=== PATIENT | female | born 1970 | race Caucasian/White ===

== ENCOUNTER 2018-08-12 07:40 | Day surgery (SDC) | payer MEDICAID ==
[2018-08-02 12:45] LABS: ADD MAN DIFF? NO
[2018-08-02 12:51] LABS: BASOPHILS % 0.1 % (0.0-2.0); EOSINOPHILS % 0.1 % (0.0-7.0); HEMATOCRIT 39.1 % (37.0-47.0); LYMPHOCYTES # 1.8 10^3/ul (0.8-2.9); LYMPHOCYTES % 22.2 % (15.0-51.0); MEAN CORPUSCULAR HEMOGLOBIN 30.1 pg (29.0-33.0); MEAN CORPUSCULAR HGB CONC 33.2 g/dl (32.0-37.0); MEAN CORPUSCULAR VOLUME 90.5 fl (82.0-101.0); MEAN PLATELET VOLUME 10.3 fl (7.4-10.4); MONOCYTE # 0.5 10^3/ul (0.3-0.9); MONOCYTES % 5.7 % (0.0-11.0); NEUTROPHIL # 5.7 10^3/ul (1.6-7.5); NEUTROPHILS % 71.6 % (39.0-77.0); PLATELET COUNT 193 10^3/UL (140-415); RED BLOOD COUNT 4.32 10^6/ul (4.20-5.40); RED CELL DISTRIBUTION WIDTH 12.4 % (11.5-14.5)
[2018-08-02 12:51] LABS: WHITE BLOOD COUNT 7.9 10^3/ul (4.8-10.8)
[2018-08-02 13:11] LABS: ALANINE AMINOTRANSFERASE 16 IU/L (13-69); ALBUMIN 4.4 g/dl (3.3-4.9); ALBUMIN/GLOBULIN RATIO 1.46; ALKALINE PHOSPHATASE 47 IU/L (42-121); ANION GAP 8 (5-13); ASPARTATE AMINO TRANSFERASE 13 IU/L (15-46); BILIRUBIN,INDIRECT 0.6 mg/dl (0-1.1); BILIRUBIN,TOTAL 0.6 mg/dl (0.2-1.3); BLOOD UREA NITROGEN 13 mg/dl (7-20); CALCIUM 9.5 mg/dl (8.4-10.2); CARBON DIOXIDE 25 mmol/L (21-31); CHLORIDE 107 mmol/L (97-110); CREATININE 0.69 mg/dl (0.44-1.00); Estimated GFR > 60 mL/min (>60); GLUCOSE 91 mg/dl (70-220); SODIUM 140 mmol/L (135-144); TOTAL PROTEIN 7.4 g/dl (6.1-8.1)
[2018-08-02 13:46] LABS: POTASSIUM 4.3 mmol/L (3.5-5.1)
[2018-08-02 14:27] LABS: INR 0.98; PROTIME 13.1 Sec (11.9-14.9)
[2018-08-02 14:28] LABS: PARTIAL THROMBOPLASTIN TIME 32.8 Sec (23.0-35.0)
[~2018-08-12 07:40] MED LIST: CEFAZOLIN 1 GM INJ; LIDOCAINE 2% (SDV) 5 ML INJ; METOCLOPRAMIDE 10 MG INJ; ONDANSETRON 4 MG INJ; PROPOFOL 200 MG INJ
[2018-08-12] MEDS: SOD CHLORIDE 0.9% 1,000 ML IV (13:00)
[2018-08-12] MEDS: CEFAZOLIN 2 GM/50 ML (PMX) 50 ML IVPB (13:00)
[2018-08-12] MEDS ORDERED: MIDAZOLAM 1 MG/ML 2 ML INJ (14:21)
[2018-08-12] MEDS ORDERED: FENTAnyl 50 MCG/ML VIAL ×2 (14:21→15:51)
[2018-08-12] MEDS ORDERED: MEPERIDINE 25 MG INJ IV (15:00)
[2018-08-12] MEDS ORDERED: DIPHENHYDRAMINE 50 MG INJ IV (15:00)
[2018-08-12] MEDS ORDERED: HYDROmorphONE 1 MG/5 ML IV SYRINGE IV ×2 (15:00)
[2018-08-12] MEDS ORDERED: IPRATROPIUM (NEB) 0.5 MG/2.5 ML AMP HHN (15:00)
[2018-08-12] MEDS ORDERED: FENTAnyl 50 MCG/ML VIAL IV (15:00)
[2018-08-12] MEDS ORDERED: KETOROLAC 30 MG INJ IV (15:00)
[2018-08-12] MEDS: ISOSULFAN BLUE 1% 5 ML INJ SC (15:33)
[2018-08-12] MEDS ORDERED: LEVALBUTEROL (NEB) 1.25 MG/0.5 ML AMP HHN (16:30)
[2018-08-12] MEDS ORDERED: HYDROCODONE/APAP (7.5/325) TAB PO (16:30)
[2018-08-12] MEDS: ALBUTEROL/IPRATROPIUM (NEB) 3 ML AMP HHN (16:33)
[2018-08-12] MEDS: LEVALBUTEROL (NEB) 1.25 MG/0.5 ML AMP HHN (16:33)
[2018-08-12] MEDS: ONDANSETRON 4 MG INJ IV ×2 (16:48→18:00)
[2018-08-12] MEDS: FENTAnyl 50 MCG/ML VIAL IV (16:48)
[2018-08-12] MEDS: HYDROmorphONE 1 MG/5 ML IV SYRINGE IV (17:11)
== END 2018-08-12 18:55 | disposition home or self-care (01) ==
LOC: SDS 07:40
DX: C50.912 Malignant neoplasm of unspecified site of left female breast (principal)
CPT/HCPCS: 19301; 71045; 80053; 85025; 85610; 85730; 88307; 88331; 93005; 94664